=== PATIENT | female | born 2000 | race Caucasian/White ===

== ENCOUNTER 2023-09-01 16:03 | Emergency (ER) | payer MEDICAID ==
[~2023-09-01] VITALS: Ht 160 cm; Wt 58.0 kg
[2023-09-01 16:19] VITALS: O2SAT 100
[2023-09-01 16:58] LABS: BASOPHILS % 0.3 % (0.0-2.0); EOSINOPHILS % 0.6 % (0.0-5.0); HEMATOCRIT. 38.1 % (36.0-48.0); HEMOGLOBIN. 12.7 g/dL (12.0-16.0); LYMPHOCYTES % 25.8 % (20.0-50.0); MEAN CORPUSCULAR HEMOGLOBIN 28.5 pg (28.0-32.0); MEAN CORPUSCULAR HGB CONC 33.4 g/dL (31.0-37.0); MEAN CORPUSCULAR VOLUME 85.5 fL (81.0-99.0); MEAN PLATELET VOLUME 9.2 fl (7.4-10.4); NEUTROPHILS % 67.3 % (40.0-76.0); PLATELET 269 x1000/uL (130-400); RED BLOOD CELL COUNT 4.46 mill/uL (4.2-5.4); RED CELL DISTRIBUTION WIDTH 14.9 % (11.6-14.6)
[2023-09-01] MEDS ORDERED: ACETAMINOPHEN 325MG TABLET PO ONE (17:00)
[2023-09-01 17:10] LABS: ALANINE AMINOTRANSFERASE 12 IU/L (10-49); ALBUMIN 4.7 g/dL (3.2-4.8); ASPARTATE AMINOTRANSFERASE 17 IU/L (<34); CALCIUM 8.9 mg/dL (8.7-10.4); CARBON DIOXIDE 26 mEq/L (21-32); CHLORIDE 105 mEq/L (98-107); CREATININE 0.5 mg/dL (0.6-1.0); GLUCOSE 85 mg/dL (70-105); POTASSIUM 3.8 mEq/L (3.5-5.1); PROTEIN TOTAL 7.7 g/dL (6.0-8.3); SODIUM 135 mEq/L (136-145); UREA NITROGEN BLOOD 5 mg/dL (9-23)
[2023-09-01 17:13] LABS: HCG SCREEN POSITIVE
[2023-09-01] MEDS ORDERED: TOPUD MT (19:13)
[2023-09-01 19:28] VITALS: BP 118/85; PULSE 85; RESP 16; TEMP 98.2
== END 2023-09-01 19:29 | disposition home or self-care (01) ==
LOC: ER 16:03
DX: O26.91 Pregnancy related conditions, unspecified, first trimester (principal); R10.2 Pelvic and perineal pain; Z3A.08 8 weeks gestation of pregnancy
CPT/HCPCS: 36415; 76805; 80053; 84702; 84703; 85025; 86850; 86900; 99284